=== PATIENT | female | born 1985 | race Two or more races ===

== ENCOUNTER 2020-02-25 10:09 | Emergency (ER) | payer BC ==
[~2020-02-25] VITALS: Ht 170.2 cm; Wt 105.2 kg
[2020-02-25] MEDS ORDERED: albuterol INH (10:28)
--- NOTE | 2020-02-25 10:28 | NUR ---
PT SITTING IN BED, NO SIGNS OF DISTRESS. MOM AT BEDSIDE.
--- NOTE | 2020-02-25 10:35 | NUR ---
PT AMBULATORY TO BATHROOM, STEADY GAIT.
[2020-02-25 11:01] LABS: MICROSCOPIC INDICATED
[2020-02-25 11:02] LABS: BASOPHILS # (AUTO) 0.04 x10^3/uL (0-0.1); BASOPHILS % (AUTO) 1 % (0-1); EOSINOPHILS # (AUTO) 0.06 x10^3/uL (0-0.4); EOSINOPHILS % (AUTO) 1 % (1-7); LYMPHOCYTES # (AUTO) 1.88 x10^3/uL (1-3.4); LYMPHOCYTES % (AUTO) 24 % (22-44); MD NO; MEAN CORPUSCULAR HGB CONC 33.6 g/dL (32.4-35.8); MEAN CORPUSCULAR VOLUME 86.4 fL (80-100); MEAN PLATELET VOLUME 8.2 fL (7.4-10.4); MONOCYTES # (AUTO) 0.57 x10^3/uL (0.2-0.8); MONOCYTES % (AUTO) 7 % (2-9); NEUTROPHILS # (AUTO) 5.35 x10^3/uL (1.8-6.8); NEUTROPHILS % (AUTO) 68 % (42-75); PLATELET COUNT 300 x10^3/uL (130-400); RED BLOOD COUNT 4.82 x10^6/uL (3.82-5.3); RED CELL DISTRIBUTION WIDTH 13.1 % (9.6-15.2)
[2020-02-25 11:12] LABS: ALANINE AMINOTRANSFERASE 24 U/L (12-78); ALBUMIN 3.6 g/dL (3.4-5.0); ANION GAP 4 mmol/L (5-15); CALCIUM 8.3 mg/dL (8.5-10.1); CHLORIDE 110 mmol/L (98-107); CREATININE 0.62 mg/dL (0.55-1.02)
[2020-02-25 11:12] LABS: CULTURE INDICATED? NO
--- NOTE | 2020-02-25 11:12 | NUR ---
PT SITTING IN BED, ON PHONE, NO SIGNS OF DISTRESS, WILL CONTINUE TO MONITOR. MOTHER REMAINS AT BEDSIDE.
[2020-02-25 11:16] LABS: ALKALINE PHOSPHATASE 68 U/L (45-117); BILIRUBIN,TOTAL 0.6 mg/dL (0.2-1.0)
--- NOTE | 2020-02-25 11:22 | NUR ---
PT TO IMAGING.
--- NOTE | 2020-02-25 12:22 | NUR ---
PT REFUSED MISCARRIAGE BEREAVEMENT PACKET AND RESOURCES.
[2020-02-25 12:23] VITALS: BP 102/65
== END 2020-02-25 12:25 | disposition home or self-care (01) ==
LOC: ED 11:48
DX: O03.9 Complete or unspecified spontaneous abortion without complication (principal); J45.909 Unspecified asthma, uncomplicated; Z90.49 Acquired absence of other specified parts of digestive tract; Z87.891 Personal history of nicotine dependence
CPT/HCPCS: 36415; 76801; 80053; 81001; 84702; 85025; 99284